=== PATIENT | female | born 1950 | race Hispanic/Latino ===

== ENCOUNTER 2019-08-08 15:24 | Inpatient (IN) | payer MEDICARE ==
[2019-08-08] MEDS ORDERED: IPRATROPIUM 0.02% NEBU 2.5 ML IH ONE ×2 (15:29→15:37)
[2019-08-08] MEDS ORDERED: ALBUTEROL 2.5 MG/3 ML NEBU IH ONE ×3 (15:29→15:37)
[2019-08-08] MEDS ORDERED: MAGNESIUM SULFATE 2 GM/50 ML BAG IV ONE (15:37)
[2019-08-08] MEDS ORDERED: SODIUM CHLORIDE 0.9% 1000 ML 1,000 ML IV ONE (15:37)
[2019-08-08] MEDS ORDERED: dexAMETHasone 20 MG/5 ML VIAL IV ONE (15:39)
--- NOTE | 2019-08-08 15:39 | Event Note ---
Date of service: 08/08/19 Face to Face: Patient is a 68-year-old female from [place], currently a voluntary resident at [facility], reports a history of COPD and asthma, not home oxygen dependent, presenting with cough, wheezing, shortness of breath. Patient was hypoxic in the field to 76%. She denies posterior leg pain, leg swelling, surgery. She drove here 5 hours from [place], but denies posterior leg swelling. She states her symptoms feel similar to prior episodes of COPD, although more intense. Apparently in the field she was hypoxic to the mid 70s. Upon initial evaluation, tachypneic, tachycardic, diffuse wheezing, saturating in the high 90s on supplemental oxygen with albuterol and Atrovent. X-ray of the chest suggest possible interstitial lung disease, right lower lobe effusion, question infiltrate. Laboratory studies pending, initial management, including albuterol, Atrovent, steroids, fluid and magnesium ordered. Anticipate admission for COPD exacerbation, and respiratory failure. Vital Signs 08/08/19 15:36 Temperature 98.9 F Pulse Rate 113 H Respiratory 24 Rate Blood Pressure 202/74 [Left] O2 Sat by Pulse 99 Oximetry
--- NOTE | 2019-08-08 15:40 | Emergency Department Report ---
<FRANC CALLAWAY - Last Filed: 08/08/19 17:30> ED Shortness of Breath HPI - General Chief Complaint: Dyspnea/Respdistress Stated Complaint: HUGH Time Seen by Provider: 08/08/19 15:34 - History of Present Illness Initial Comments: 68-year-old female presents to the emergency room shortness of breath. Upon EMS arrival patient had a oxygen level of 76 on room air. Patient has a past medical history COPD. She denies any intubation for her COPD. she admits to cough shortness of breath no fever that had URI symptoms a week prior to her symptoms starting today. Patient states that these symptoms have been swollen for about 10 days. She reports is coming from [place] from being in [facility] and traveled to [place] to obtain Theodore voluntarily for depression. MD Complaint: shortness of breath Onset/Timin -: days(s) Improves With: oxygen Worsens With: lying flat Known History Of: COPD Context: recent URI Associated Symptoms: cough, sputum production Treatments Prior to Arrival: oxygen - Related Data Allergies Allergy/AdvReac Type Severity Reaction Status Date / Time cephalexin [From Keflex] Allergy Mild Hives Verified 08/08/19 15:36 ED Review of Systems Comment: All other systems reviewed and negative Respiratory: cough, shortness of breath, SOB with exertion Cardiovascular: dyspnea on exertion. denies: chest pain, palpitations Endocrine: no symptoms reported Gastrointestinal: denies: abdominal pain, nausea, diarrhea Genitourinary: denies: urgency, dysuria, discharge Musculoskeletal: denies: back pain, joint swelling, arthralgia Skin: denies: rash, lesions Neurological: denies: headache, weakness, paresthesias Psychiatric: denies: anxiety, depression Hematological/Lymphatic: denies: easy bleeding, easy bruising ED Physical Exam - General General appearance: alert, other (is in respiratory distress) - Head Head exam: Present: atraumatic, normocephalic - Eye Eye exam: Present: normal appearance, EOMI - ENT ENT exam: Present: mucous membranes moist - Neck Neck exam: Present: full ROM. Absent: tenderness, lymphadenopathy - Respiratory Respiratory exam: Present: rhonchi, accessory muscle use, prolonged expiratory - Cardiovascular Cardiovascular Exam: Present: tachycardia - GI/Abdominal GI/Abdominal exam: Present: soft, normal bowel sounds. Absent: distended, tenderness - Back Exam Back exam: Present: full ROM. Absent: tenderness - Neurological Exam Neurological exam: Present: alert, oriented X3 - Psychiatric Psychiatric exam: Present: normal affect, normal mood - Skin Skin exam: Present: warm, dry, intact, normal color. Absent: rash ED Medical Decision Making - Lab Data Result diagrams: 08/08/19 16:19 08/08/19 16:19 - Radiology Data Radiology results: report reviewed Patient: LIZET BERNABE MR#: [id number] : 1950 Acct:[id number] Age/Sex: 68 / F ADM Date: 08/08/19 Loc: ED Attending Dr: Ordering Physician: ISAMAR MORALES Date of Service: 08/08/19 Procedure(s): XR chest 1V ap Accession Number(s): [id number] cc: ISAMAR MORALES Fluoro Time In Minutes: CHEST 1 VIEW INDICATION: Shortness of breath. COMPARISON: None FINDINGS: Support devices: None. Heart: Within normal limits. Lungs/Pleura: Underlying emphysematous changes are suspected. There are chronic interstitial changes at the lung bases. The right costophrenic angle is blunted from a small right pleural effusion versus pleural thickening. Additional findings: Chronic deformity of the right lateral fifth rib. IMPRESSION: Chronic lung changes as described. Small right pleural effusion versus pleural thickening. Signer Name: Omar Bucio Jr, MD Signed: 08/08/2019 4:12 PM Workstation Name: [id number] Transcribed By: TTR Dictated By: OMAR BUCIO JR, MD Electronically Authenticated By: OMAR BUCIO JR, MD Signed Date/Time: 08/08/191611 DD/ 10 TD/TT: - Medical Decision Making 68-year-old female presents to the emergency room shortness of breath. Upon EMS arrival patient had a oxygen level of 76 on room air. Patient has a past medical history COPD. She denies any intubation for her COPD. she admits to cough shortness of breath no fever that had URI symptoms a week prior to her symptoms starting today. Patient states that these symptoms have been swollen for about 10 days. She reports is coming from [place] from being in detox and traveled to [place] to obtain [facility] voluntarily for depression. ED Disposition Clinical Impression: COPD exacerbation, SIRS (systemic inflammatory response syndrome) Disposition: DC-09 OP ADMIT IP TO THIS HOSP Condition: Serious <AUSTEN GUILLEN - Last Filed: 08/08/19 20:46> ED Review of Systems ROS: Stated complaint: HUGH Other details as noted in HPI ED Course Vital Signs 08/08/19 08/08/19 08/08/19 15:36 16:30 16:40 Temperature 98.9 F Pulse Rate 113 H 109 H Pulse Rate [ 111 H Anterior Bilateral Throughout] Respiratory 24 27 H Rate Respiratory 28 H Rate [Anterior Bilateral Throughout] Blood Pressure 158/53 Blood Pressure 202/74 [Left] O2 Sat by Pulse 99 96 Oximetry - Reevaluation(s) Reevaluation #1: 08/08/19 16:53 Leukocytosis reviewed and appreciated. This is likely a stress reaction. Patient required initiation of BiPAP. Additional fluids order to comply with sepsis requirements. Patient will require admission to the hospital for COPD exacerbation and systemic inflammatory response syndrome. ED Medical Decision Making - Lab Data Result diagrams: 08/08/19 16:19 08/08/19 16:19 Vital Signs 08/08/19 08/08/19 08/08/19 15:36 16:30 16:40 Temperature 98.9 F Pulse Rate 113 H 109 H Pulse Rate [ 111 H Anterior Bilateral Throughout] Respiratory 24 27 H Rate Respiratory 28 H Rate [Anterior Bilateral Throughout] Blood Pressure 158/53 Blood Pressure 202/74 [Left] O2 Sat by Pulse 99 96 Oximetry Lab Results 08/08/19 08/08/19 08/08/19 Range/Units 16:19 16:19 16:19 WBC 25.2 H (4.5-11.0) K/mm3 RBC 3.70 (3.65-5.03) M/mm3 Hgb 10.7 (10.1-14.3) gm/dl Hct 32.4 (30.3-42.9) % MCV 88 (79-97) fl MCH 29 (28-32) pg MCHC 33 (30-34) % RDW 15.6 H (13.2-15.2) % Plt Count 510 H (140-440) K/mm3 PT 13.7 (12.2-14.9) Sec. INR 1.06 (0.87-1.13) APTT 29.2 (24.2-36.6) Sec. D-Dimer (0-234) ng/mlDDU POC ABG pH (7.35-7.45) POC ABG pCO2 (35-45) POC ABG pO2 (80-105) POC ABG HCO3 (22-26 mml/L) POC ABG Total CO2 (23-27mmol/L) POC ABG O2 Sat POC ABG Base Excess ((-2) - (+3)mmol/L) FiO2 % Sodium 123 L (137-145) mmol/L Potassium 4.1 (3.6-5.0) mmol/L Chloride 87.6 L (98-107) mmol/L Carbon Dioxide 24 (22-30) mmol/L Anion Gap 16 mmol/L BUN 10 (7-17) mg/dL Creatinine 0.4 L (0.7-1.2) mg/dL Estimated GFR > 60 ml/min BUN/Creatinine Ratio 25 % Glucose 132 H (65-100) mg/dL Lactic Acid (0.7-2.0) mmol/L Uric Acid (3.5-7.6) mg/dL Calcium 8.6 (8.4-10.2) mg/dL Magnesium 1.60 L (1.7-2.3) mg/dL Total Creatine Kinase 820 H (30-135) units/L TSH (0.270-4.200) mlU/mL 08/08/19 08/08/19 08/08/19 Range/Units 16:30 16:32 17:06 WBC (4.5-11.0) K/mm3 RBC (3.65-5.03) M/mm3 Hgb (10.1-14.3) gm/dl Hct (30.3-42.9) % MCV (79-97) fl MCH (28-32) pg MCHC (30-34) % RDW (13.2-15.2) % Plt Count (140-440) K/mm3 PT (12.2-14.9) Sec. INR (0.87-1.13) APTT (24.2-36.6) Sec. D-Dimer 416.09 H (0-234) ng/mlDDU POC ABG pH 7.370 (7.35-7.45) POC ABG pCO2 48.5 H (35-45) POC ABG pO2 118 H (80-105) POC ABG HCO3 28.0 (22-26 mml/L) POC ABG Total CO2 29 (23-27mmol/L) POC ABG O2 Sat 98 POC ABG Base Excess 3 ((-2) - (+3)mmol/L) FiO2 50 % Sodium (137-145) mmol/L Potassium (3.6-5.0) mmol/L Chloride (98-107) mmol/L Carbon Dioxide (22-30) mmol/L Anion Gap mmol/L BUN (7-17) mg/dL Creatinine (0.7-1.2) mg/dL Estimated GFR ml/min BUN/Creatinine Ratio % Glucose (65-100) mg/dL Lactic Acid 1.00 (0.7-2.0) mmol/L Uric Acid (3.5-7.6) mg/dL Calcium (8.4-10.2) mg/dL Magnesium (1.7-2.3) mg/dL Total Creatine Kinase (30-135) units/L TSH (0.270-4.200) mlU/mL 08/08/19 08/08/19 Range/Units 17:52 17:52 WBC (4.5-11.0) K/mm3 RBC (3.65-5.03) M/mm3 Hgb (10.1-14.3) gm/dl Hct (30.3-42.9) % MCV (79-97) fl MCH (28-32) pg MCHC (30-34) % RDW (13.2-15.2) % Plt Count (140-440) K/mm3 PT (12.2-14.9) Sec. INR (0.87-1.13) APTT (24.2-36.6) Sec. D-Dimer (0-234) ng/mlDDU POC ABG pH (7.35-7.45) POC ABG pCO2 (35-45) POC ABG pO2 (80-105) POC ABG HCO3 (22-26 mml/L) POC ABG Total CO2 (23-27mmol/L) POC ABG O2 Sat POC ABG Base Excess ((-2) - (+3)mmol/L) FiO2 % Sodium (137-145) mmol/L Potassium (3.6-5.0) mmol/L Chloride (98-107) mmol/L Carbon Dioxide (22-30) mmol/L Anion Gap mmol/L BUN (7-17) mg/dL Creatinine (0.7-1.2) mg/dL Estimated GFR ml/min BUN/Creatinine Ratio % Glucose (65-100) mg/dL Lactic Acid (0.7-2.0) mmol/L Uric Acid 3.6 (3.5-7.6) mg/dL Calcium (8.4-10.2) mg/dL Magnesium (1.7-2.3) mg/dL Total Creatine Kinase (30-135) units/L TSH 0.366 (0.270-4.200) mlU/mL - EKG Data -: EKG Interpreted by Ct EKG shows normal: sinus rhythm Rate: normal - EKG Data 08/08/19 20:45 The EKG shows a sinus rhythm, 91 beats a minute, borderline leftward axis deviation, QTC is 484 ms, there is poor R progression, there is motion artifact, is abnormal, there is no prior for comparison, it is not consistent with ST elevation myocardial infarction. - Radiology Data Radiology results: report reviewed, image reviewed Critical Care Time: Yes Critical care time in (mins) excluding proc time.: 35 Critical care attestation.: If time is entered above; I have spent that time in minutes in the direct care of this critically ill patient, excluding procedure time. ED Disposition Is pt being admited?: Yes Does the pt Need Aspirin: No
--- NOTE | 2019-08-08 16:17 | XRay Report ---
CHEST 1 VIEW INDICATION: Shortness of breath. COMPARISON: None FINDINGS: Support devices: None. Heart: Within normal limits. Lungs/Pleura: Underlying emphysematous changes are suspected. There are chronic interstitial changes at the lung bases. The right costophrenic angle is blunted from a small right pleural effusion versus pleural thickening. Additional findings: Chronic deformity of the right lateral fifth rib. IMPRESSION: Chronic lung changes as described. Small right pleural effusion versus pleural thickening. Signer Name: Omar Bucio Jr, MD Signed: 08/08/2019 4:12 PM Workstation Name: [id number]
[2019-08-08 16:43] LABS: Hematocrit 32.4 % (30.3-42.9); Hemoglobin 10.7 gm/dl (10.1-14.3); Mean Corpuscular HGB Conc 33 % (30-34); Mean Corpuscular Volume 88 fl (79-97); Platelet Count 510 K/mm3 (140-440); Red Cell Distribution Width 15.6 % (13.2-15.2)
[2019-08-08] MEDS ORDERED: SODIUM CHLORIDE 0.9% 1000 ML 2,000 ML IV ONE (16:52)
[2019-08-08] MEDS ORDERED: SODIUM CHLORIDE 0.9% 250ML 250 ML IV ONE (16:52)
[2019-08-08 16:53] LABS: INR 1.06 (0.87-1.13)
[2019-08-08 16:54] LABS: Partial Thromboplastin Time 29.2 Sec. (24.2-36.6)
[2019-08-08 17:28] LABS: BUN/Creatinine Ratio 25; Blood Urea Nitrogen 10 mg/dL (7-17); Calcium 8.6 mg/dL (8.4-10.2); Hemolysis Index 6
[2019-08-08] MEDS ORDERED: ONDANSETRON 4 MG/2 ML INJ IV PRN (17:58)
[2019-08-08] MEDS ORDERED: ACETAMINOPHEN 325 MG TAB PO PRN (17:58)
[2019-08-08] MEDS ORDERED: ALBUTEROL 2.5 MG/3 ML NEBU IH PRN (17:58)
[2019-08-08 19:21] LABS: Creatinine,Urine 317.4 mg/dL (0.1-20.0)
[2019-08-08 19:23] LABS: Bacteria,Urine 1+ /HPF (Negative); Bilirubin,Urine NEG (Negative); Blood,Urine NEG (Negative); Color,Urine Amber (Yellow); Mucus,Urine 2+ /HPF
[2019-08-08] MEDS: AZITHROMYCIN 500 MG in SODIUM CHLORIDE 0.9% 250ML 250 ML IV SCH (22:27)
[2019-08-08] MEDS: methylPREDNISolone Sod Succinate 40 MG/1 ML INJ IV SCH (22:28)
[2019-08-08] MEDS: FAMOTIDINE 10 MG TAB PO SCH (22:28)
--- NOTE | 2019-08-08 22:39 | History and Physical Report ---
History of Present Illness Date of admission: 08/08/19 17:58 Chief complaint: Im short of breath History of present illness: 68 YO Female with COPD, Depression currently a volunteer resident at [facility]. Pt reports feeling short of breath over the past 1 day with worsening symptoms over the same time frame. EMS notified, and upon arrival the patient was found to be in distress and transported to [facility]. Pt seen and evaluated in ED and found to have COPD exacerbation and treated with nebulizer therapy without improvement. Pt placed on NIPPV in ED. Pt placed in observation status and admitted to DIANE unit. Pt denies fever, chills, CP, Palpitations,NVD, Trauma, BRBPR, skin rash or recent ill contacts. Past History Past Medical History: other (See HPI) Past Surgical History: No surgical history, Other (reviewed) Social history: single. denies: smoking, alcohol abuse, prescription drug abuse, IV drug use Family history: no significant family history Medications and Allergies Allergies Allergy/AdvReac Type Severity Reaction Status Date / Time cephalexin [From Keflex] Allergy Mild Hives Verified 08/08/19 15:36 Active Meds: Active Medications Acetaminophen (Tylenol) 650 mg PO Q4H PRN PRN Reason: Pain MILD(1-3)/Fever >100.5/PEREZ Albuterol (Proventil) 2.5 mg IH Q4HRT PRN PRN Reason: Shortness Of Breath Last Admin: 08/08/19 21:42 Dose: 2.5 mg Documented by: Famotidine (Pepcid) 10 mg PO BID [facility] Last Admin: 08/08/19 22:28 Dose: 10 mg Documented by: Guaifenesin (Robitussin) 200 mg PO Q4H PRN PRN Reason: Cough Azithromycin 500 mg/ Sodium (Chloride) 250 mls @ 250 mls/hr IV Q24HR [facility]; Protocol Last Admin: 08/08/19 22:27 Dose: 250 mls/hr Documented by: Methylprednisolone Sodium Succinate (Solu-Medrol) 20 mg IV Q12HR [facility] Last Admin: 08/08/19 22:28 Dose: 20 mg Documented by: Ondansetron HCl (Zofran) 4 mg IV Q8H PRN PRN Reason: Nausea And Vomiting Sodium Chloride (Sodium Chloride Flush Syringe 10 Ml) 10 ml IV BID [facility] Last Admin: 08/08/19 22:28 Dose: 10 ml Documented by: Sodium Chloride (Sodium Chloride Flush Syringe 10 Ml) 10 ml IV PRN PRN PRN Reason: LINE FLUSH Review of Systems Constitutional: no weight loss, no weight gain, no fever, no chills Ears, nose, mouth and throat: no ear pain, no ear discharge, no tinnitis, no decreased hearing, no nose pain, no nasal discharge Breasts: no change in shape, no mass Cardiovascular: shortness of breath, no chest pain, no orthopnea, no palpitations, no edema Respiratory: shortness of breath Gastrointestinal: no abdominal pain, no nausea, no vomiting, no diarrhea Genitourinary Female: no flank pain, no dysuria Rectal: no pain, no incontinence, no bleeding Musculoskeletal: no neck stiffness, no shooting arm pain, no arm numbness/tingling Integumentary: no rash, no redness, no sores, no boils, no blisters Neurological: no head injury, no parathesias, no tingling, no seizures Psychiatric: no memory loss, no change in sleep habits, no insomnia, no hypersomnia, no suicidal ideation Exam - Constitutional Vitals: Temp Pulse Resp BP Pulse Ox 98.3 F 92 H 20 125/52 92 08/08/19 20:34 08/08/19 22:35 08/08/19 20:34 08/08/19 20:34 08/08/19 22:35 General appearance: Present: mild distress - EENT Eyes: Present: PERRL ENT: hearing intact, clear oral mucosa - Neck Neck: Present: supple, normal ROM - Respiratory Respiratory effort: normal Respiratory: bilateral: CTA - Cardiovascular Heart Sounds: Present: S1 & S2. Absent: rub, click - Extremities Extremities: pulses symmetrical, No edema Peripheral Pulses: within normal limits - Abdominal General gastrointestinal: Present: soft, non-tender, non-distended, normal bowel sounds Female genitourinary: Present: normal - Integumentary Integumentary: Present: clear, warm, dry - Musculoskeletal Musculoskeletal: gait normal, strength equal bilaterally - Psychiatric Psychiatric: appropriate mood/affect, intact judgment & insight - Neurologic Neurologic: CNII-XII intact, moves all extremities Results - Labs CBC & Chem 7: 08/08/19 16:19 08/08/19 16:19 Labs: Abnormal lab results 08/08/19 08/08/19 08/08/19 Range/Units 16:19 16:19 16:30 WBC 25.2 H (4.5-11.0) K/mm3 RDW 15.6 H (13.2-15.2) % Plt Count 510 H (140-440) K/mm3 D-Dimer (0-234) ng/mlDDU POC ABG pCO2 48.5 H (35-45) POC ABG pO2 118 H (80-105) Sodium 123 L (137-145) mmol/L Chloride 87.6 L (98-107) mmol/L Creatinine 0.4 L (0.7-1.2) mg/dL Glucose 132 H (65-100) mg/dL Magnesium 1.60 L (1.7-2.3) mg/dL Total Creatine Kinase 820 H (30-135) units/L Urine Creatinine (0.1-20.0) mg/dL 08/08/19 08/08/19 08/08/19 Range/Units 16:32 18:12 19:09 WBC (4.5-11.0) K/mm3 RDW (13.2-15.2) % Plt Count (140-440) K/mm3 D-Dimer 416.09 H (0-234) ng/mlDDU POC ABG pCO2 (35-45) POC ABG pO2 134 H (80-105) Sodium (137-145) mmol/L Chloride (98-107) mmol/L Creatinine (0.7-1.2) mg/dL Glucose (65-100) mg/dL Magnesium (1.7-2.3) mg/dL Total Creatine Kinase (30-135) units/L Urine Creatinine 317.4 H (0.1-20.0) mg/dL Assessment and Plan - Patient Problems (1) COPD exacerbation Current Visit: Yes Status: Acute Plan to address problem: IV steroid therapy, NIPPV, supplemental oxygen, pulse oximetry, chest x ray, empiric antibiotic therapy (2) SIRS (systemic inflammatory response syndrome) Current Visit: Yes Status: Acute Plan to address problem: CBC, CMP, Chest x ray, urinalysis, (3) DVT prophylaxis Current Visit: Yes Status: Acute Plan to address problem: SCD to BLE while in bed, Pt ambulatory
[2019-08-08] MEDS: guaiFENesin 100 MG/5 ML ORAL LIQD PO PRN (23:33)
[2019-08-09] MEDS: methylPREDNISolone Sod Succinate 40 MG/1 ML INJ IV SCH (09:38)
[2019-08-09] MEDS: FAMOTIDINE 10 MG TAB PO SCH ×2 (09:38→22:36)
[2019-08-09] MEDS: AZITHROMYCIN 500 MG in SODIUM CHLORIDE 0.9% 250ML 250 ML IV SCH (09:38)
[2019-08-09] MEDS: guaiFENesin 100 MG/5 ML ORAL LIQD PO PRN ×3 (10:57→22:37)
--- NOTE | 2019-08-09 12:12 | Consultation ---
History of Present Illness Consult date: 08/09/19 Requesting physician: EUNICE ANDUJAR Reason for consult: COPD History of present illness: 68 y/o female originally from [place] admitted with COPD exacerbation. Patient is followed by a lung doc in [facility]. Patient unfortunately suffers from major depression and ETOH abuse. She is currently at [facility] for therapy. Her COPD is not well controlled secondary to lack of funding and being on a fixed income. Remainder of the review is negative. Past History Past Medical History: other (See HPI) Past Surgical History: No surgical history, Other (reviewed) Social history: single. denies: smoking, alcohol abuse, prescription drug abuse, IV drug use Family history: no significant family history Medications and Allergies Allergies Allergy/AdvReac Type Severity Reaction Status Date / Time cephalexin [From Keflex] Allergy Mild Hives Verified 08/08/19 15:36 Home Medications Medication Instructions Recorded Confirmed Last Taken Type FLUoxetine HCL [PROzac] 40 mg PO QDAY 08/09/19 08/09/19 08/08/19 10:00 History Active Meds: Active Medications Acetaminophen (Tylenol) 650 mg PO Q4H PRN PRN Reason: Pain MILD(1-3)/Fever >100.5/PEREZ Albuterol (Proventil) 2.5 mg IH Q4HRT PRN PRN Reason: Shortness Of Breath Last Admin: 08/08/19 21:42 Dose: 2.5 mg Documented by: Benzonatate (Tessalon Perles) 100 mg PO Q8HR [facility] Famotidine (Pepcid) 10 mg PO BID [facility] Last Admin: 08/09/19 09:38 Dose: 10 mg Documented by: Guaifenesin (Robitussin) 200 mg PO Q4H PRN PRN Reason: Cough Last Admin: 08/09/19 10:57 Dose: 200 mg Documented by: Azithromycin 500 mg/ Sodium (Chloride) 250 mls @ 250 mls/hr IV Q24HR [facility]; Protocol Last Admin: 08/09/19 09:38 Dose: 250 mls/hr Documented by: Methylprednisolone Sodium Succinate (Solu-Medrol) 20 mg IV Q12HR [facility] Last Admin: 08/09/19 09:38 Dose: 20 mg Documented by: Ondansetron HCl (Zofran) 4 mg IV Q8H PRN PRN Reason: Nausea And Vomiting Sodium Chloride (Sodium Chloride Flush Syringe 10 Ml) 10 ml IV BID [facility] Last Admin: 08/09/19 09:38 Dose: 10 ml Documented by: Sodium Chloride (Sodium Chloride Flush Syringe 10 Ml) 10 ml IV PRN PRN PRN Reason: LINE FLUSH Review of Systems All systems: negative Physical Examination Vital signs: Vital Signs Temp Pulse Resp BP Pulse Ox 98.9 F 113 H 24 202/74 99 08/08/19 15:36 08/08/19 15:36 08/08/19 15:36 08/08/19 15:36 08/08/19 15:36 General appearance: no acute distress, other (dishelved) Eyes: icteric ENT: other (poor dentition) Neck: supple Effort: normal Ascultation: Bilateral: diminished breath sounds, wheezes Percussion: Bilateral: not dull Tactile fremitus: Bilateral: normal Cardiovascular: regular rate and rhythm Gastrointestinal: normoactive bowel sounds, soft Extremities: no edema Results - Laboratory Findings CBC and BMP: 08/10/19 04:48 08/10/19 04:48 ABG POC ABG pH 7.399 (7.35-7.45) 08/08/19 18:12 POC ABG pCO2 41.5 (35-45) 08/08/19 18:12 POC ABG pO2 134 (80-105) H 08/08/19 18:12 POC ABG HCO3 25.6 (22-26 mml/L) 08/08/19 18:12 POC ABG Total CO2 27 (23-27mmol/L) 08/08/19 18:12 POC ABG O2 Sat 99 08/08/19 18:12 PT/INR, D-dimer PT 13.7 Sec. (12.2-14.9) 08/08/19 16:19 INR 1.06 (0.87-1.13) 08/08/19 16:19 D-Dimer 416.09 ng/mlDDU (0-234) H 08/08/19 16:32 Abnormal lab findings: Abnormal Labs 08/08/19 08/08/19 08/08/19 16:19 16:19 16:30 WBC 25.2 H RDW 15.6 H Plt Count 510 H D-Dimer POC ABG pCO2 48.5 H POC ABG pO2 118 H Sodium 123 L Chloride 87.6 L Creatinine 0.4 L Glucose 132 H Magnesium 1.60 L Total Creatine Kinase 820 H Urine Creatinine 08/08/19 08/08/19 08/08/19 16:32 18:12 19:09 WBC RDW Plt Count D-Dimer 416.09 H POC ABG pCO2 POC ABG pO2 134 H Sodium Chloride Creatinine Glucose Magnesium Total Creatine Kinase Urine Creatinine 317.4 H - Diagnostic Findings Chest x-ray: image reviewed (small right sided effusion. What appears to be edema vs chronic changes in the bilateral bases) Assessment and Plan 68 y/o female with acute exacerbation of COPD 1. Will stop Azithro 2. Pulmicort and Brovana BID, PRN albuterol 3. May need ipratroprium 4. Check BNP
--- NOTE | 2019-08-09 13:15 | Progress Note ---
Assessment and Plan Assessment and plan: Patient is a 68 yo woman from [facility] (volunteer for MDD and alcholol abuse) with a history of COPD, Depression, alcohol abuse and tobacco dependency who presents with SOB. She was found to have pulse OX of only 76% on RA. Acute hypoxic respiratory failure: treat O2, on 3 liters now, treat the COPD Acute COPD exacerbation: iv steroids, nebs, abx,m anti-tussive SIRS with organ dysfunction with very high WBC: get blood cultures and treat empirically use levaquin, allergic to keflex Tobacco dependency: counseling done, offered nicotine patch Alcohol dependency: add CIWA protocol and thiamine Major Depression Disorder: continue antihypertensives Severe Hyponatremia, hypovolemia: treated with ivf, monitor levels closely DVT ppx, add sq heparin History Interval history: Patient was seen and examined. Follow-up on current diagnosis of COPD. No overnight events reported to me. Patient denies any chest pain, shortness breath, nausea/vomiting or severe headaches. Imaging, nursing note, chart, labs and old chart reviewed. Discussed with patient. Hospitalist Physical - Physical exam Narrative exam: Gen: WDWN, NAD, Awake, Alert, Orientated HEENT: NCAT, EOMI, PERRL, OP Clear Neck: supple, no adenopathy, no thyromegaly, no JVD CVS/Heart: rrr normal S1S2, pulses present bilaterally Chest/Lungs: diminished bs bilateral, Symmetrical chest expansion, good air e ntry bilaterally GI/Abdomen: soft, NTND, good bowel sounds, no guarding or rebound /Bladder: no suprapubic tenderness, no CVA or paraspinal tenderness Extermity/Skin: no c/c/e, no obvious rash MSK: FROM x 4 Neuro: CN 2-12 grossly intact, no new focal deficits Psych: calm - Constitutional Vitals: Temp Pulse Resp BP Pulse Ox 97.9 F 105 H 22 142/60 95 08/09/19 07:38 08/09/19 07:38 08/09/19 07:38 08/09/19 07:38 08/09/19 10:00 Results - Labs CBC & Chem 7: 08/08/19 16:19 08/08/19 16:19 Labs: Laboratory Last Values WBC 25.2 K/mm3 (4.5-11.0) H 08/08/19 16:19 RBC 3.70 M/mm3 (3.65-5.03) 08/08/19 16:19 Hgb 10.7 gm/dl (10.1-14.3) 08/08/19 16:19 Hct 32.4 % (30.3-42.9) 08/08/19 16:19 MCV 88 fl (79-97) 08/08/19 16:19 MCH 29 pg (28-32) 08/08/19 16:19 MCHC 33 % (30-34) 08/08/19 16:19 RDW 15.6 % (13.2-15.2) H 08/08/19 16:19 Plt Count 510 K/mm3 (140-440) H 08/08/19 16:19 PT 13.7 Sec. (12.2-14.9) 08/08/19 16:19 INR 1.06 (0.87-1.13) 08/08/19 16:19 APTT 29.2 Sec. (24.2-36.6) 08/08/19 16:19 D-Dimer 416.09 ng/mlDDU (0-234) H 08/08/19 16:32 POC ABG pH 7.399 (7.35-7.45) 08/08/19 18:12 POC ABG pCO2 41.5 (35-45) 08/08/19 18:12 POC ABG pO2 134 (80-105) H 08/08/19 18:12 POC ABG HCO3 25.6 (22-26 mml/L) 08/08/19 18:12 POC ABG Total CO2 27 (23-27mmol/L) 08/08/19 18:12 POC ABG O2 Sat 99 08/08/19 18:12 POC ABG Base Excess 1 ((-2) - (+3)mmol/L) 08/08/19 18:12 FiO2 35 % 08/08/19 18:12 Sodium 123 mmol/L (137-145) L 08/08/19 16:19 Potassium 4.1 mmol/L (3.6-5.0) 08/08/19 16:19 Chloride 87.6 mmol/L (98-107) L 08/08/19 16:19 Carbon Dioxide 24 mmol/L (22-30) 08/08/19 16:19 Anion Gap 16 mmol/L 08/08/19 16:19 BUN 10 mg/dL (7-17) 08/08/19 16:19 Creatinine 0.4 mg/dL (0.7-1.2) L 08/08/19 16:19 Estimated GFR > 60 ml/min 08/08/19 16:19 BUN/Creatinine Ratio 25 % 08/08/19 16:19 Glucose 132 mg/dL (65-100) H 08/08/19 16:19 Lactic Acid 1.00 mmol/L (0.7-2.0) 08/08/19 17:06 Uric Acid 3.6 mg/dL (3.5-7.6) 08/08/19 17:52 Calcium 8.6 mg/dL (8.4-10.2) 08/08/19 16:19 Magnesium 1.60 mg/dL (1.7-2.3) L 08/08/19 16:19 Total Creatine Kinase 820 units/L (30-135) H 08/08/19 16:19 TSH 0.366 mlU/mL (0.270-4.200) 08/08/19 17:52 Urine Color [place]ár[place] (Yellow) 08/08/19 19:09 Urine Turbidity Slightly-cloudy (Clear) 08/08/19 19:09 Urine pH 6.0 (5.0-7.0) 08/08/19 19:09 Ur Specific [place] 1.024 (1.003-1.030) 08/08/19 19:09 Urine Protein 100 mg/dl mg/dL (Negative) 08/08/19 19:09 Urine Glucose (UA) Neg mg/dL (Negative) 08/08/19 19:09 Urine Ketones 20 mg/dL (Negative) 08/08/19 19:09 Urine Blood Neg (Negative) 08/08/19 19:09 Urine Nitrite Neg (Negative) 08/08/19 19:09 Ur Reducing Substances Not Reportable 08/08/19 19:09 Urine Bilirubin Neg (Negative) 08/08/19 19:09 Urine Ictotest Not Reportable 08/08/19 19:09 Urine Urobilinogen 4.0 mg/dL (<2.0) 08/08/19 19:09 Ur Leukocyte Esterase Neg (Negative) 08/08/19 19:09 Urine WBC (Auto) 2.0 /HPF (0.0-6.0) 08/08/19 19:09 Urine RBC (Auto) 2.0 /HPF (0.0-6.0) 08/08/19 19:09 U Epithel Cells (Auto) 11.0 /HPF (0-13.0) 08/08/19 19:09 Urine Bacteria (Auto) 1+ /HPF (Negative) 08/08/19 19:09 Urine Mucus 2+ /HPF 08/08/19 19:09 Urine Osmolality 590 Mosm/kg 08/08/19 19:09 Urine Creatinine 317.4 mg/dL (0.1-20.0) H 08/08/19 19:09 Urine Sodium 30 mmol/L 08/08/19 19:09 Active Medications - Current Medications Current Medications: Generic Name Dose Route Start Last Admin Trade Name Freq PRN Reason Stop Dose Admin Acetaminophen 650 mg 08/08/19 17:58 Tylenol PO Q4H PRN Pain MILD(1-3)/Fever >100.5/PEREZ Albuterol 2.5 mg 08/08/19 17:58 08/08/19 21:42 Proventil IH 2.5 mg Q4HRT PRN Administration Shortness Of Breath Arformoterol Tartrate 15 mcg 08/09/19 13:00 Brovana Nebu IH Q12HRT JOLLY Benzonatate 100 mg 08/09/19 14:00 Tessalon Perles PO Q8HR JOLLY Budesonide 0.5 mg 08/09/19 13:00 Pulmicort IH Q12HRT [facility] Famotidine 10 mg 08/08/19 22:00 08/09/19 09:38 Pepcid PO 10 mg BID JOLLY Administration Guaifenesin 200 mg 08/08/19 21:15 08/09/19 10:57 Robitussin PO 200 mg Q4H PRN Administration Cough Azithromycin 500 mg/ Sodium 250 mls @ 250 mls/hr 08/08/19 20:00 08/09/19 09:38 Chloride IV 250 mls/hr Q24HR JOLLY Administration Protocol Methylprednisolone Sodium Succinate 40 mg 08/09/19 16:00 Solu-Medrol IV 08/09/19 16:01 ONCE ONE Ondansetron HCl 4 mg 08/08/19 17:58 Zofran IV Q8H PRN Nausea And Vomiting Prednisone 60 mg 08/10/19 10:00 Deltasone PO QDAY JOLLY Sodium Chloride 10 ml 08/08/19 22:00 08/09/19 09:38 Sodium Chloride Flush Syringe 10 Ml IV 10 ml BID JOLLY Administration Sodium Chloride 10 ml 08/08/19 17:58 Sodium Chloride Flush Syringe 10 Ml IV PRN PRN LINE FLUSH
[2019-08-09] MEDS: BENZONATATE 100 MG CAP PO SCH (13:33)
[2019-08-09] MEDS ORDERED: methylPREDNISolone Sod Succinate 40 MG/1 ML INJ IV ONE (16:00)
[2019-08-09] MEDS: BUDESONIDE 0.5 MG/2 ML NEBU IH SCH ×3 (20:36→22:48)
[2019-08-09] MEDS: ARFORMOTEROL 15 MCG/2 ML NEBU IH SCH ×2 (20:37→22:47)
[2019-08-10 05:18] LABS: Hematocrit 31.4 % (30.3-42.9); Hemoglobin 10.1 gm/dl (10.1-14.3); Mean Corpuscular HGB Conc 32 % (30-34); Mean Corpuscular Volume 88 fl (79-97); Platelet Count 553 K/mm3 (140-440); Red Blood Count 3.56 M/mm3 (3.65-5.03); Red Cell Distribution Width 15.7 % (13.2-15.2)
[2019-08-10 05:32] LABS: BUN/Creatinine Ratio 35; Blood Urea Nitrogen 7 mg/dL (7-17); Calcium 8.9 mg/dL (8.4-10.2); Hemolysis Index 11
[2019-08-10] MEDS: BENZONATATE 100 MG CAP PO SCH ×3 (07:17→21:54)
[2019-08-10] MEDS: FAMOTIDINE 10 MG TAB PO SCH ×2 (09:09→21:54)
[2019-08-10] MEDS: predniSONE 20 MG TAB PO SCH (09:10)
[2019-08-10] MEDS: AZITHROMYCIN 500 MG in SODIUM CHLORIDE 0.9% 250ML 250 ML IV SCH (09:22)
[2019-08-10] MEDS: ARFORMOTEROL 15 MCG/2 ML NEBU IH SCH (09:49)
[2019-08-10] MEDS: BUDESONIDE 0.5 MG/2 ML NEBU IH SCH ×2 (09:50→20:29)
[2019-08-10] MEDS: guaiFENesin 100 MG/5 ML ORAL LIQD PO PRN ×2 (11:25→21:52)
[2019-08-10] MEDS ORDERED: MAGNESIUM SULFATE 2 GM/50 ML BAG IV ONE (11:35)
--- NOTE | 2019-08-10 11:44 | Progress Note ---
Assessment and Plan Assessment and plan: Patient is a 68 yo woman from [facility] (volunteer for MDD and alcholol abuse) with a history of COPD, Depression, alcohol abuse and tobacco dependency who presents with SOB. She was found to have pulse OX of only 76% on RA. Acute hypoxic respiratory failure: treat O2, on 3 liters now, treat the COPD Acute COPD exacerbation: iv steroids, nebs, abx, anti-tussive SIRS with organ dysfunction with very high WBC: get blood cultures and treat empirically use levaquin, allergic to keflex Tobacco dependency: counseling done, offered nicotine patch Alcohol dependency: add CIWA protocol and thiamine Major Depression Disorder: continue antihypertensives Severe Hyponatremia, hypovolemia: treated with ivf, monitor levels closely Hypomagnesemia: replete and recheck DVT ppx, add sq heparin Disposition: continue inpatient care, trying to wean off O2 or home o2 setup tomorrow History Interval history: Patient was seen and examined. Follow-up on current diagnosis of COPD. No overnight events reported to me. Patient denies any chest pain, shortness breath, nausea/vomiting or severe headaches. Imaging, nursing note, chart, labs and old chart reviewed. Discussed with patient. Hospitalist Physical - Physical exam Narrative exam: Gen: WDWN, NAD, Awake, Alert, Orientated HEENT: NCAT, EOMI, PERRL, OP Clear Neck: supple, no adenopathy, no thyromegaly, no JVD CVS/Heart: rrr normal S1S2, pulses present bilaterally Chest/Lungs: diminished bs bilateral, Symmetrical chest expansion, good air entry bilaterally GI/Abdomen: soft, NTND, good bowel sounds, no guarding or rebound /Bladder: no suprapubic tenderness, no CVA or paraspinal tenderness Extermity/Skin: no c/c/e, no obvious rash MSK: FROM x 4 Neuro: CN 2-12 grossly intact, no new focal deficits Psych: calm - Constitutional Vitals: Temp Pulse Resp BP Pulse Ox 97.9 F 77 18 143/54 96 08/10/19 07:39 08/10/19 10:00 08/10/19 10:00 08/10/19 07:42 08/10/19 10:22 General appearance: Absent: mild distress Results - Labs CBC & Chem 7: 08/10/19 04:48 08/10/19 04:48 Labs: Laboratory Last Values WBC 26.4 K/mm3 (4.5-11.0) H 08/10/19 04:48 RBC 3.56 M/mm3 (3.65-5.03) L 08/10/19 04:48 Hgb 10.1 gm/dl (10.1-14.3) 08/10/19 04:48 Hct 31.4 % (30.3-42.9) 08/10/19 04:48 MCV 88 fl (79-97) 08/10/19 04:48 MCH 28 pg (28-32) 08/10/19 04:48 MCHC 32 % (30-34) 08/10/19 04:48 RDW 15.7 % (13.2-15.2) H 08/10/19 04:48 Plt Count 553 K/mm3 (140-440) H 08/10/19 04:48 PT 13.7 Sec. (12.2-14.9) 08/08/19 16:19 INR 1.06 (0.87-1.13) 08/08/19 16:19 APTT 29.2 Sec. (24.2-36.6) 08/08/19 16:19 D-Dimer 416.09 ng/mlDDU (0-234) H 08/08/19 16:32 POC ABG pH 7.399 (7.35-7.45) 08/08/19 18:12 POC ABG pCO2 41.5 (35-45) 08/08/19 18:12 POC ABG pO2 134 (80-105) H 08/08/19 18:12 POC ABG HCO3 25.6 (22-26 mml/L) 08/08/19 18:12 POC ABG Total CO2 27 (23-27mmol/L) 08/08/19 18:12 POC ABG O2 Sat 99 08/08/19 18:12 POC ABG Base Excess 1 ((-2) - (+3)mmol/L) 08/08/19 18:12 FiO2 35 % 08/08/19 18:12 Sodium 131 mmol/L (137-145) L D 08/10/19 04:48 Potassium 4.6 mmol/L (3.6-5.0) 08/10/19 04:48 Chloride 92.7 mmol/L (98-107) L 08/10/19 04:48 Carbon Dioxide 26 mmol/L (22-30) 08/10/19 04:48 Anion Gap 17 mmol/L 08/10/19 04:48 BUN 7 mg/dL (7-17) 08/10/19 04:48 Creatinine 0.2 mg/dL (0.7-1.2) L 08/10/19 04:48 Estimated GFR > 60 ml/min 08/10/19 04:48 BUN/Creatinine Ratio 35 % 08/10/19 04:48 Glucose 148 mg/dL (65-100) H 08/10/19 04:48 Lactic Acid 1.00 mmol/L (0.7-2.0) 08/08/19 17:06 Uric Acid 3.6 mg/dL (3.5-7.6) 08/08/19 17:52 Calcium 8.9 mg/dL (8.4-10.2) 08/10/19 04:48 Magnesium 1.60 mg/dL (1.7-2.3) L 08/08/19 16:19 Total Creatine Kinase 820 units/L (30-135) H 08/08/19 16:19 TSH 0.366 mlU/mL (0.270-4.200) 08/08/19 17:52 Urine Color [place]ár[place] (Yellow) 08/08/19 19:09 Urine Turbidity Slightly-cloudy (Clear) 08/08/19 19:09 Urine pH 6.0 (5.0-7.0) 08/08/19 19:09 Ur Specific [place] 1.024 (1.003-1.030) 08/08/19 19:09 Urine Protein 100 mg/dl mg/dL (Negative) 08/08/19 19:09 Urine Glucose (UA) Neg mg/dL (Negative) 08/08/19 19:09 Urine Ketones 20 mg/dL (Negative) 08/08/19 19:09 Urine Blood Neg (Negative) 08/08/19 19:09 Urine Nitrite Neg (Negative) 08/08/19 19:09 Ur Reducing Substances Not Reportable 08/08/19 19:09 Urine Bilirubin Neg (Negative) 08/08/19 19:09 Urine Ictotest Not Reportable 08/08/19 19:09 Urine Urobilinogen 4.0 mg/dL (<2.0) 08/08/19 19:09 Ur Leukocyte Esterase Neg (Negative) 08/08/19 19:09 Urine WBC (Auto) 2.0 /HPF (0.0-6.0) 08/08/19 19:09 Urine RBC (Auto) 2.0 /HPF (0.0-6.0) 08/08/19 19:09 U Epithel Cells (Auto) 11.0 /HPF (0-13.0) 08/08/19 19:09 Urine Bacteria (Auto) 1+ /HPF (Negative) 08/08/19 19:09 Urine Mucus 2+ /HPF 08/08/19 19:09 Urine Osmolality 590 Mosm/kg 08/08/19 19:09 Urine Creatinine 317.4 mg/dL (0.1-20.0) H 08/08/19 19:09 Urine Sodium 30 mmol/L 08/08/19 19:09 Active Medications - Current Medications Current Medications: Generic Name Dose Route Start Last Admin Trade Name Freq PRN Reason Stop Dose Admin Acetaminophen 650 mg 08/08/19 17:58 Tylenol PO Q4H PRN Pain MILD(1-3)/Fever >100.5/PEREZ Albuterol 2.5 mg 08/08/19 17:58 08/08/19 21:42 Proventil IH 2.5 mg Q4HRT PRN Administration Shortness Of Breath Arformoterol Tartrate 15 mcg 08/09/19 13:00 08/10/19 09:49 Brovana Nebu IH 15 mcg Q12HRT JOLLY Administration Benzonatate 100 mg 08/09/19 14:00 08/10/19 07:17 Tessalon Perles PO Not Given Q8HR JOLLY Budesonide 0.5 mg 08/09/19 13:00 08/10/19 09:50 Pulmicort IH 0.5 mg Q12HRT JOLLY Administration Famotidine 10 mg 08/08/19 22:00 08/10/19 09:09 Pepcid PO 10 mg BID JOLLY Administration Guaifenesin 200 mg 08/08/19 21:15 08/10/19 11:25 Robitussin PO 200 mg Q4H PRN Administration Cough Heparin Sodium (Porcine) 5,000 unit 08/10/19 22:00 Heparin SUB-Q Q12HR JOLLY Azithromycin 500 mg/ Sodium 250 mls @ 250 mls/hr 08/08/19 20:00 08/10/19 09:22 Chloride IV 08/12/19 10:59 250 mls/hr Q24HR JOLLY Administration Protocol Levofloxacin/Dextrose 750 mg in 150 mls @ 100 mls/hr 08/09/19 15:00 08/10/19 09:11 Levaquin 750mg/150ml IV 100 mls/hr Q24HR JOLLY Administration Protocol Ondansetron HCl 4 mg 08/08/19 17:58 Zofran IV Q8H PRN Nausea And Vomiting Prednisone 60 mg 08/10/19 10:00 08/10/19 09:10 Deltasone PO 60 mg QDAY JOLLY Administration Sodium Chloride 10 ml 08/08/19 22:00 08/10/19 09:22 Sodium Chloride Flush Syringe 10 Ml IV 10 ml BID JOLLY Administration Sodium Chloride 10 ml 08/08/19 17:58 Sodium Chloride Flush Syringe 10 Ml IV PRN PRN LINE FLUSH
[2019-08-10] MEDS: THIAMINE 100 MG TAB PO SCH (13:08)
[2019-08-10] MEDS: MULTIVITAMINS ,THERAPEUTIC TAB PO SCH (13:08)
[2019-08-10] MEDS: FLUoxetine 20 MG CAP PO SCH (13:09)
--- NOTE | 2019-08-10 14:43 | Progress Note ---
Assessment and Plan 68 y/o female with acute exacerbation of COPD 1. Will try one time dose of lasix today. 2. Will stop Brovana and place on scheduled duoneb treatments. 3. Follow up BNP 4. May need echo to screen for Pulmonary HTN Subjective Date of service: 08/10/19 Interval history: Somewhat better but still some labored breathing. Objective Vital Signs - 12hr 08/10/19 08/10/19 08/10/19 07:39 07:42 08:41 Temperature 97.9 F Pulse Rate 75 77 77 Pulse Rate [ Apical] Respiratory 20 Rate Blood Pressure 137/45 143/54 O2 Sat by Pulse 97 98 Oximetry 08/10/19 08/10/19 08/10/19 10:00 10:22 13:51 Temperature 97.5 F L Pulse Rate 95 H Pulse Rate [ 77 Apical] Respiratory 18 20 Rate Blood Pressure 142/61 O2 Sat by Pulse 98 96 92 Oximetry Constitutional: no acute distress, other (dishelved) Eyes: icteric ENT: other (poor dentition) Neck: supple Effort: normal Ascultation: Bilateral: diminished breath sounds, wheezes Percussion: Bilateral: not dull Tactile fremitus: Bilateral: normal Cardiovascular: regular rate and rhythm Gastrointestinal: normoactive bowel sounds, soft Extremities: no edema CBC and BMP: 08/10/19 04:48 08/10/19 04:48 ABG, PT/INR, D-dimer: ABG POC ABG pH 7.399 (7.35-7.45) 08/08/19 18:12 POC ABG pCO2 41.5 (35-45) 08/08/19 18:12 POC ABG pO2 134 (80-105) H 08/08/19 18:12 POC ABG HCO3 25.6 (22-26 mml/L) 08/08/19 18:12 POC ABG Total CO2 27 (23-27mmol/L) 08/08/19 18:12 POC ABG O2 Sat 99 08/08/19 18:12 PT/INR, D-dimer PT 13.7 Sec. (12.2-14.9) 08/08/19 16:19 INR 1.06 (0.87-1.13) 08/08/19 16:19 D-Dimer 416.09 ng/mlDDU (0-234) H 08/08/19 16:32 Abnormal lab findings: Abnormal Labs 08/08/19 08/08/19 08/08/19 16:19 16:19 16:30 WBC 25.2 H RBC RDW 15.6 H Plt Count 510 H D-Dimer POC ABG pCO2 48.5 H POC ABG pO2 118 H Sodium 123 L Chloride 87.6 L Creatinine 0.4 L Glucose 132 H Magnesium 1.60 L Total Creatine Kinase 820 H Urine Creatinine 08/08/19 08/08/19 08/08/19 16:32 18:12 19:09 WBC RBC RDW Plt Count D-Dimer 416.09 H POC ABG pCO2 POC ABG pO2 134 H Sodium Chloride Creatinine Glucose Magnesium Total Creatine Kinase Urine Creatinine 317.4 H 08/10/19 08/10/19 04:48 04:48 WBC 26.4 H RBC 3.56 L RDW 15.7 H Plt Count 553 H D-Dimer POC ABG pCO2 POC ABG pO2 Sodium 131 L D Chloride 92.7 L Creatinine 0.2 L Glucose 148 H Magnesium Total Creatine Kinase Urine Creatinine
[2019-08-10] MEDS ORDERED: FUROSEMIDE 20 MG/2 ML INJ IV ONE (15:30)
[2019-08-10] MEDS: IPRATROPIUM/ALBUTEROL SULFATE 3 ML AMPUL.NEB IH SCH (20:29)
[2019-08-11] MEDS: IPRATROPIUM/ALBUTEROL SULFATE 3 ML AMPUL.NEB IH SCH ×6 (00:11→18:54)
[2019-08-11] MEDS: guaiFENesin 100 MG/5 ML ORAL LIQD PO PRN ×2 (05:05→09:04)
[2019-08-11] MEDS: HEPARIN 5,000 UNIT/1 ML VIAL SUB-Q SCH ×2 (05:08→09:06)
[2019-08-11 06:03] LABS: Hematocrit 34.1 % (30.3-42.9); Hemoglobin 10.9 gm/dl (10.1-14.3); Mean Corpuscular HGB Conc 32 % (30-34); Mean Corpuscular Volume 90 fl (79-97); Platelet Count 591 K/mm3 (140-440); Red Cell Distribution Width 16.1 % (13.2-15.2)
[2019-08-11 06:10] LABS: BUN/Creatinine Ratio 27; Blood Urea Nitrogen 8 mg/dL (7-17); Calcium 9.1 mg/dL (8.4-10.2); Hemolysis Index 18
[2019-08-11] MEDS: BUDESONIDE 0.5 MG/2 ML NEBU IH SCH (07:54)
[2019-08-11] MEDS: FAMOTIDINE 10 MG TAB PO SCH (09:05)
[2019-08-11] MEDS: THIAMINE 100 MG TAB PO SCH (09:05)
[2019-08-11] MEDS: FLUoxetine 20 MG CAP PO SCH (09:05)
[2019-08-11] MEDS: predniSONE 20 MG TAB PO SCH (09:06)
[2019-08-11] MEDS: MULTIVITAMINS ,THERAPEUTIC TAB PO SCH (09:06)
[2019-08-11] MEDS: BENZONATATE 100 MG CAP PO SCH ×2 (09:13→14:05)
--- NOTE | 2019-08-11 14:51 | Discharge Summary ---
Providers - Providers Date of Admission: 08/09/19 10:20 Date of discharge: 08/11/19 Attending physician: EUNICE NADUJAR 08/09/19 08:43 Physical Therapy Evaluation and Treat [CONS] Routine Comment: Reason For Exam: Weakness 08/09/19 10:23 Consult to Physician [CONS] Routine Comment: called office/andrew Consulting Provider: NICHOLAS HYDE Physician Instructions: Reason For Exam: severe copd 08/11/19 11:26 Consult Geriatric-Psych [CONS] Routine Consulting Provider: Reason For Exam: MDD and alcohol abuse Primary care physician: [facility] Hospitalization Condition: Stable Hospital course: Patient is a 68 yo woman from [facility] (volunteer for MDD and alcholol abuse) with a history of COPD, Depression, alcohol abuse and tobacco dependency who presents with SOB. She was found to have pulse OX of only 76% on RA. Discharge Diagnoses: Acute hypoxic respiratory failure: treated with supplemental O2, treated the COPD Acute COPD exacerbation: iv steroids, nebs, abx, anti-tussive SIRS with organ dysfunction with very high WBC: get blood cultures and treat empirically use levaquin, allergic to keflex Tobacco dependency: counseling done, offered nicotine patch Alcohol dependency: add CIWA protocol and thiamine Major Depression Disorder: restart home prozac 40mg/d Severe Hyponatremia, hypovolemia: treated with ivf, monitor levels closely Hypomagnesemia: replete and recheck DVT ppx, add sq heparin Disposition: O2 weaned off today, will discharge home to go back to [facility] We offered our [facility] admission, for MDD/ETOH abuse and further O2 monitoring and more visits from Us but she declined. Disposition: TO HOME OR SELFCARE Time spent for discharge: 35 minutes Core Measure Documentation - Palliative Care Palliative Care/ Comfort Measures: Not Applicable - Core Measures Any of the following diagnoses?: none - VTE Discharge Requirements Deep Vein Thrombosis/Pulmonary Embolism Present on Admission: No Has pt received <5 days of overlap therapy or INR<2.0: No Anticoagulant overlap therapy prescribed at discharge: No Contraindication No Overlap Therapy order at DC: Not Indicated Exam - Physical Exam Narrative exam: Gen: WDWN, NAD, Awake, Alert, Orientated HEENT: NCAT, EOMI, PERRL, OP Clear Neck: supple, no adenopathy, no thyromegaly, no JVD CVS/Heart: rrr normal S1S2, pulses present bilaterally Chest/Lungs: much improved diminished bs bilateral, Symmetrical chest expansion, good air entry bilaterally GI/Abdomen: soft, NTND, good bowel sounds, no guarding or rebound /Bladder: no suprapubic tenderness, no CVA or paraspinal tenderness Extermity/Skin: no c/c/e, no obvious rash MSK: FROM x 4 Neuro: CN 2-12 grossly intact, no new focal deficits Psych: calm - Constitutional Vitals: Temp Pulse Resp BP Pulse Ox 98.8 F 85 18 151/60 93 08/11/19 07:26 08/11/19 10:00 08/11/19 10:00 08/11/19 07:26 08/11/19 10:00 Plan Activity: other (no strenous activity unless cleared by primary provider) Diet: regular Follow up with: PRIMARY CARE, [Primary Care Provider] - 7 Days Prescriptions: Ipratropium/Albuterol Sulfate [DUONEB *Not for PRN Use*] 1 ampul IH Q4HRT #30 ampul.neb levoFLOXacin [Levaquin] 750 mg PO QDAY #5 tablet methylPREDNISolone [Medrol 4MG DOSEPAK (21 tabs)] 1 dose PO DAILY #1 tab.ds.pk ALBUTEROL Inhaler (OR & NICU) [ProAir HFA Inhaler] 2 puff IH QID PRN #8.5 gram PRN Reason: Shortness Of Breath ALBUTEROL NEB's [Proventil 0.083% NEBS] 2.5 mg IH Q4HRT PRN #30 nebu PRN Reason: Shortness Of Breath guaiFENesin [Robitussin] 200 mg PO Q4H PRN 5 Days #1 bottle PRN Reason: Cough Benzonatate [Tessalon Perles] 100 mg PO Q8HR 5 Days #15 capsule Thiamine [Vitamin B-1] 100 mg PO QDAY #30 tablet
--- NOTE | 2019-08-11 15:12 | Progress Note ---
Assessment and Plan 68 y/o female with acute exacerbation of COPD 1. Tolerated lasix well. elevated BNP. MOst likely has Pulm HTN. Can follow up with her Pulm doc but may need lasix at home. 2. Funding big issue for patient in regards to therapy. Suggest Cheapest Dual therapy that is covered by her Insurance. 3. Follow up with her pulm doc in [place]. Subjective Date of service: 08/11/19 Interval history: Patient being discharged today. Breathing better Objective Vital Signs - 12hr 08/11/19 08/11/19 07:26 10:00 Temperature 98.8 F Pulse Rate 85 Respiratory 20 18 Rate Blood Pressure 151/60 O2 Sat by Pulse 99 93 Oximetry Constitutional: no acute distress, other (dishelved) Eyes: icteric ENT: other (poor dentition) Neck: supple Effort: normal Ascultation: Bilateral: diminished breath sounds, wheezes Percussion: Bilateral: not dull Tactile fremitus: Bilateral: normal Cardiovascular: regular rate and rhythm Gastrointestinal: normoactive bowel sounds, soft Extremities: no edema CBC and BMP: 08/11/19 05:21 08/11/19 05:21 ABG, PT/INR, D-dimer: ABG POC ABG pH 7.399 (7.35-7.45) 08/08/19 18:12 POC ABG pCO2 41.5 (35-45) 08/08/19 18:12 POC ABG pO2 134 (80-105) H 08/08/19 18:12 POC ABG HCO3 25.6 (22-26 mml/L) 08/08/19 18:12 POC ABG Total CO2 27 (23-27mmol/L) 08/08/19 18:12 POC ABG O2 Sat 99 08/08/19 18:12 PT/INR, D-dimer PT 13.7 Sec. (12.2-14.9) 08/08/19 16:19 INR 1.06 (0.87-1.13) 08/08/19 16:19 D-Dimer 416.09 ng/mlDDU (0-234) H 08/08/19 16:32 Abnormal lab findings: Abnormal Labs 08/08/19 08/08/19 08/08/19 16:19 16:19 16:30 WBC 25.2 H RBC RDW 15.6 H Plt Count 510 H D-Dimer POC ABG pCO2 48.5 H POC ABG pO2 118 H Sodium 123 L Chloride 87.6 L Creatinine 0.4 L Glucose 132 H Magnesium 1.60 L Total Creatine Kinase 820 H NT-Pro-B Natriuret Pep Urine Creatinine 08/08/19 08/08/19 08/08/19 16:32 18:12 19:09 WBC RBC RDW Plt Count D-Dimer 416.09 H POC ABG pCO2 POC ABG pO2 134 H Sodium Chloride Creatinine Glucose Magnesium Total Creatine Kinase NT-Pro-B Natriuret Pep Urine Creatinine 317.4 H 08/10/19 08/10/19 08/10/19 04:48 04:48 04:48 WBC 26.4 H RBC 3.56 L RDW 15.7 H Plt Count 553 H D-Dimer POC ABG pCO2 POC ABG pO2 Sodium 131 L D Chloride 92.7 L Creatinine 0.2 L Glucose 148 H Magnesium Total Creatine Kinase NT-Pro-B Natriuret Pep 905.1 H Urine Creatinine 08/11/19 08/11/19 05:21 05:21 WBC 15.1 H RBC RDW 16.1 H Plt Count 591 H D-Dimer POC ABG pCO2 POC ABG pO2 Sodium 130 L Chloride 91.5 L Creatinine 0.3 L Glucose Magnesium Total Creatine Kinase NT-Pro-B Natriuret Pep Urine Creatinine
[2019-08-11 18:34] VITALS: BP 146/57
== END 2019-08-11 16:05 | disposition home or self-care (01) | DRG 189 ==
LOC: ED 15:24 → EDBD 15:24 → 2B-ACE 17:58 → OBSVTOIN 08-09 10:20
PROVIDERS: ADMIT Internal Medicine; ATTEND Internal Medicine
PROC: 4A033R1 Measurement of Arterial Saturation, Peripheral, Percutaneous Approach (ICD-10-PCS; principal; 2019-08-07)
PROC: 5A09357 Assistance with Respiratory Ventilation, Less than 24 Consecutive Hours, Continuous Positive Airway Pressure (ICD-10-PCS; 2019-08-08)
DX: J96.01 Acute respiratory failure with hypoxia (principal); R65.11 Systemic inflammatory response syndrome (SIRS) of non-infectious origin with acute organ dysfunction; J44.1 Chronic obstructive pulmonary disease with (acute) exacerbation; E87.1 Hypo-osmolality and hyponatremia; F32.9 Major depressive disorder, single episode, unspecified; F17.200 Nicotine dependence, unspecified, uncomplicated; E86.1 Hypovolemia; E83.42 Hypomagnesemia; F10.10 Alcohol abuse, uncomplicated; Z79.899 Other long term (current) drug therapy; Z71.6 Tobacco abuse counseling
CPT/HCPCS: 36415; 71045; 80048; 81001; 82140; 82550; 82570; 82803; 83735; 83880; 83935; 84300; 84443; 84550; 85027; 85379; 85610; 85730; 87040; 93005; 93010; 94640; 94644; 94760; 96365; G0378; J0456; J1100; J1644; J1940; J1956; J2920; J3475; J7030; J7050; J7512